=== PATIENT | male | born 1960 | race Caucasian/White ===

== ENCOUNTER → 2017-08-26 15:05 | Outpatient (CLI) | payer MEDICARE, MEDICAID, SELFPAY ==
--- NOTE | 2017-08-26 15:05 | DT_ITS ---
This patient was seen during an EMR downtime August 26, 2017 - September 02, 2017. This patient may have a combination of paper and electronic documentation or all paper documentation. All documentation is viewable within the e-chart portion of [employer] for each patient visit.
[2017-09-01 03:14] LABS: ALB/GLOB Ratio 1.1 RATIO (0.9-2.4); BUN 11 mg/dL (7-18); BUN/Creat Ratio 12.6 RATIO (10-20); Creatinine, Serum 0.87 mg/dL (0.70-1.30); EST Glomerular Filtration Rate 96 mL/min (>60); Est Glom Filt Rate - Afr Amer 116 mL/min (>60); Globulin 3.5 g/dL (2.2-4.2); Glucose 92 mg/dL (74-106); Protein, Total 7.5 g/dL (6.4-8.2)
[2017-09-01 03:15] LABS: AST(SGOT) 20 U/L (15-37); Alanine Aminotransfer ALT/SGPT 33 U/L (16-61); Alkaline Phosphatase 62 U/L (45-117); Anion Gap 7 (5-15); Chloride 105 mmol/L (98-107); Cholesterol 239 mg/dL (200); High Density Lipoprotein 34 mg/dL; Potassium 4.1 mmol/L (3.5-5.1); Sodium Level 138 mmol/L (136-145); Triglycerides 305 mg/dL; Very Low Density Lipoprotein 61 mg/dL (5-40)
[2017-09-01 03:18] LABS: Hemoglobin A1c 6.2 % (4.2-6.3)
[2017-09-01 04:00] LABS: White Blood Count 8.2 K/mm3 (4.4-11.0)
[2017-09-01 04:01] LABS: Hematocrit 38.1 % (40-54); Hemoglobin 12.9 g/dl (13.0-16.5); Mean Corp Hgb Conc 33.9 g/gl (32-36); Mean Corpuscular Hgb 31.5 pg (27.0-32.0); Mean Corpuscular Volume 92.9 fL (80-94); Mean Platelet Vol. 10.8 fl (6.2-12.0); Platelet Count 291 K/mm3 (150-450); RBC Distribution Width CV 12.6 % (11.6-14.6); RBC Distribution Width SD 41.8 fl (35.1-43.9); Scan Indicated on CBC? Y/N NO
[2017-09-01 04:15] LABS: Amphetamine Urine VISTA NEGATIVE (<1000 ng/mL); Barbiturate Urine VISTA NEGATIVE (< 200 ng/mL); Benzodiazepine Urine VISTA POSITIVE (< 200 ng/mL); Cocaine Urine VISTA NEGATIVE (< 300 ng/mL); Ecstacy Urine VISTA NEGATIVE (< 500 ng/mL); Methadone Urine VISTA NEGATIVE (< 300 ng/mL)
[2017-09-01 04:16] LABS: PCP Urine VISTA NEGATIVE (< 25 ng/mL); THC Urine VISTA NEGATIVE (< 50 ng/mL)
== END ==
PROVIDERS: Family Provider Family Medicine; PCP Family Medicine; Visit Provider Family Medicine
DX: I25.10 Atherosclerotic heart disease of native coronary artery without angina pectoris (principal); I10 Essential (primary) hypertension; R73.03 Prediabetes; Z79.899 Other long term (current) drug therapy
CPT/HCPCS: 36415; 80053; 80061; 80307; 83036; 85027

== ENCOUNTER 2018-12-03 23:33 | Emergency (ER) | payer MEDICARE, MEDICAID, SELFPAY ==
[2018-12-03 23:34] VITALS: BP 168/87; PULSE 58; RESP 16; TEMP 36.7; O2SAT 99; BMI 23.9
[2018-12-04] VITALS (9 sets, daily range): BP systolic 111–161; BP diastolic 67–80; PULSE 50–56; RESP 14–18; TEMP 37.1–37.3; O2SAT 97–100
--- NOTE | 2018-12-04 00:26 | CT_ITS ---
STUDY: CT ABDOMEN AND PELVIS WITH CONTRAST REASON FOR EXAM: Male, 57 years old. Lower abdominal pain RADIATION DOSAGE (If Supplied By Facility): CTDIvol = ( 16.50 ) mGy, DLP = ( 673.76 ) mGycm TECHNIQUE: Transaxial images were obtained from the dome of the diaphragm to the symphysis pubis without oral contrast. 100ML IV/Oral Isovue 300 was administered. Sagittal and coronal images were reconstructed. Individualized dose optimization techniques were used for this CT. COMPARISON: None. FINDINGS: The visualized lung bases are unremarkable. The visualized portions of the heart are within normal limits. Normal liver. Normal gallbladder and extrahepatic biliary system. Normal spleen. Normal pancreas. Normal bilateral adrenal glands. Normal right kidney. Normal left kidney. Normal visualized stomach. Normal small intestine. Normal colon. There is non-visualization of the appendix. There is diffuse atherosclerotic calcification of the abdominal aorta, without a demonstrated aneurysm. Normal inferior vena cava. Normal retroperitoneum. Normal urinary bladder. Normal abdominal wall. Normal osseous structures. CT/Abdomen/Pelvis WITH Contrast IMPRESSION: Normal enhanced CT of the abdomen and pelvis. Electronically Signed: Lola Olivo, at 3:40 EDT Tel , Service support ,
--- NOTE | 2018-12-04 00:27 | EKG12_ITS ---
Test Reason : MENTAL HEALTH Blood Pressure : / mmHG Vent. Rate : 048 BPM Atrial Rate : 048 BPM P-R Int : 184 ms QRS Dur : 082 ms QT Int : 454 ms P-R-T Axes : 064 057 072 degrees QTc Int : 405 ms Sinus bradycardia Otherwise normal ECG Confirmed by VERONICA JACK, XIMENA ([id number]), movie editor MITZI SCHUSTER ([id number]) on 12/08/2018 3:23:29 PM Referred By: NATHALIE Confirmed By:YOBANI MARTIN MD
--- NOTE | 2018-12-04 00:28 | ED.VIS.GEN ---
History of Present Illness Chief Complaint: Mental Health Narrative: Patient is a 57-year-old male who presents with chief complaint of I crashed. He has a history of bipolar. When asked to clarify he states he is referring to his mood. He reports suicidal thoughts. When asked if he has a plan he states Oh, I have a plan but I'm not telling you. No homicidal thoughts. He states this is worsened because of his abdominal pain. He has history of chronic abdominal pain. However his pain has been significantly worse in the last week. His pain is sharp and on the left side of his abdomen. It is worse when he has a bowel movement. He reports constipation. No diarrhea. No blood in the stool. No history of diverticulitis. He states he has had problems with his bowels ever since I was a baby. Past Medical History - Allergies and Home Meds Allergies/Adverse Reactions: Allergies acetaminophen [From Tylenol-Codeine #3] Allergy (Verified 12/03/18 23:37) Unknown codeine [From Tylenol-Codeine #3] Allergy (Verified 12/03/18 23:37) Unknown Primary Care Physician: Sony Boyle DO [Primary Care Provider] - Past Medical History: - - Coronary artery disease, hypertension, hyperlipidemia, bipolar Surgical History: no surgical history Smoking Status: Current every day smoker - Family History Maternal Family History: Reports: Diabetes, Heart Disease, Hypertension Paternal Family History: Reports: Diabetes, Heart Disease, Hypertension Review of Systems All systems negative except as indicated General: Denies: Fever Cardiovascular: Denies: Chest pain Respiratory: Denies: Dyspnea Gastrointestinal: Reports: Abdominal pain, Constipation. Denies: Nausea, Vomiting Psych: Reports: Depression, Suicidal thoughts, Suicidal ideations Physical Exam Vital Signs/Narrative: Vital Signs Temp Pulse Resp BP Pulse Ox 12/03/18 23:34 98.0 F 58 L 16 168/87 H 99 Inital Vital Signs reviewed: Yes General: Well nourished, Well developed Head: Normocephalic, Atraumatic Eyes: Perrl, EOMI ENT: Moist mucous membranes Neck: Supple Cardiovascular: Regular rate, Regular rhythm Respiratory: No distress, CTA bilaterally Abdomen: Soft, Tender. Negative for: Nontender, Nondistended Skin: Normal color Neurological: Alert Psychological: Depressed, - - Reports suicidal ideation, blunt affect Diagnostic/Tx/Re-eval Impressions Abdomen/Pelvis CT 12/04/18 00:26 IMPRESSION: Normal enhanced CT of the abdomen and pelvis. Electronically Signed: Lola Olivo, at 3:40 EDT Tel , Service support , 12/04/18 00:26 Abdomen/Pelvis WITH Contrast [CT] Stat Laboratory Results 12/04/18 12/04/18 12/04/18 00:38 00:38 00:38 WBC 6.0 RBC 4.69 Hgb 14.6 Hct 43.4 MCV 92.5 MCH 31.1 MCHC 33.6 RDW Std Deviation 42.6 RDW Coeff of Renu 12.6 Plt Count 333 MPV 9.3 Immature Gran % (Auto) 0.300 Neut % (Auto) 47.7 Lymph % (Auto) 45.0 H [place] % (Auto) 5.0 Eos % (Auto) 1.3 Baso % (Auto) 0.7 Absolute Neuts (auto) 2.9 Absolute Lymphs (auto) 2.71 Nucleated RBC % 0 Sodium 142 Potassium 3.7 Chloride 111 H Carbon Dioxide 27.0 Anion Gap 4 L BUN 9 Creatinine 0.82 Estim Creat Clear Calc 104.58 Est GFR (MDRD) Af Amer 124 Est GFR (MDRD) Non-Af 102 BUN/Creatinine Ratio 11.0 Glucose 104 Calcium 9.4 Total Bilirubin 0.40 AST 11 L ALT 23 Alkaline Phosphatase 64 Total Protein 7.6 Albumin 3.9 Globulin 3.7 Albumin/Globulin Ratio 1.1 Lipase 67 L Urine Color Urine Clarity Urine pH Ur Specific [place] Urine Protein Urine Glucose (UA) Urine Ketones Urine Occult Blood Urine Nitrite Urine Bilirubin Urine Urobilinogen Ur Leukocyte Esterase Urine RBC Urine WBC Ur Squamous Epith Cells Urine Bacteria Urine Mucus Urine Opiates Screen Urine Methadone Screen Ur Barbiturates Screen Ur Phencyclidine Scrn Ur Amphetamines Screen U Methamphetamin-MDMA U Benzodiazepines Scrn Urine Cocaine Screen U Cannabinoids Screen Ur Drug Screen Comment Ethyl Alcohol 47.0 12/04/18 12/04/18 02:10 02:10 WBC RBC Hgb Hct MCV MCH MCHC RDW Std Deviation RDW Coeff of Renu Plt Count MPV Immature Gran % (Auto) Neut % (Auto) Lymph % (Auto) [place] % (Auto) Eos % (Auto) Baso % (Auto) Absolute Neuts (auto) Absolute Lymphs (auto) Nucleated RBC % Sodium Potassium Chloride Carbon Dioxide Anion Gap BUN Creatinine Estim Creat Clear Calc Est GFR (MDRD) Af Amer Est GFR (MDRD) Non-Af BUN/Creatinine Ratio Glucose Calcium Total Bilirubin AST ALT Alkaline Phosphatase Total Protein Albumin Globulin Albumin/Globulin Ratio Lipase Urine Color Yellow Urine Clarity Clear Urine pH 7.0 Ur Specific [place] 1.005 Urine Protein Negative Urine Glucose (UA) Normal Urine Ketones Negative Urine Occult Blood Negative Urine Nitrite Negative Urine Bilirubin Negative Urine Urobilinogen Normal Ur Leukocyte Esterase Negative Urine RBC 0 SEEN Urine WBC 0 SEEN Ur Squamous Epith Cells 0 SEEN Urine Bacteria 0 SEEN Urine Mucus 0 SEEN Urine Opiates Screen POSITIVE H Urine Methadone Screen NEGATIVE Ur Barbiturates Screen NEGATIVE Ur Phencyclidine Scrn NEGATIVE Ur Amphetamines Screen NEGATIVE U Methamphetamin-MDMA NEGATIVE U Benzodiazepines Scrn POSITIVE H Urine Cocaine Screen NEGATIVE U Cannabinoids Screen POSITIVE H Ur Drug Screen Comment Ethyl Alcohol - Medical Decision Making Patient was treated with IV fluids, Toradol. Work-up as above notable for benzodiazepines, opiates, cannabinoids on his drug screen. He does appear to be prescribed benzodiazepines and opiates. Alcohol level was 47. CT of the abdomen and pelvis shows no acute process. He has had some constipation. His symptoms may be related to colonic spasm. He is still complaining of some discomfort on reevaluation but does not appear to have any serious acute or surgical pathology. He was given Bentyl. The patient is medically cleared. At this point we will have crisis evaluate the patient but given his reports of suicidal thoughts with plan he will require psychiatric hospitalization. ED Disposition - Plan for ED Patient: Disposition: Psychiatric Hospital or Unit Diagnosis: Abdominal pain, Suicidal ideation Referrals: Sony Boyle DO [Primary Care Provider] -
[2018-12-04] MEDS: 0.9% Normal Saline 1,000 ML 1000 ML IV (00:38)
[2018-12-04] MEDS: Ketorolac 30 MG/ML Syringe IV (00:38)
[2018-12-04 00:46] LABS: Absolute Lymphocyte Count 2.71 X10^3/uL (0.83-4.51); Absolute Neutrophil Count 2.9 X10^3/uL (2.0-7.7); Basophil# 0.04 X10^3/uL; Basophil% 0.7 % (0-1); Eosinophil# 0.08 X10^3/uL; Eosinophils% 1.3 % (0-5); Hematocrit 43.4 % (40-54); Hemoglobin 14.6 g/dL (13.0-16.5); Lymphocyte # 2.71 X10^3/ul (4.0); Mean Corp Hgb Conc 33.6 g/dL (32-36); Mean Corpuscular Hgb 31.1 pg (27.0-32.0); Mean Corpuscular Volume 92.5 fL (80-94); Mean Platelet Vol. 9.3 fl (6.2-12.0); NRBC Flagged by Analyzer 0 % (0-5); Neutrophil # 2.87 X10^3/uL (2.7-7.7); Neutrophil % 47.7 % (47-70); Platelet Count 333 K/mm3 (150-450); RBC Distribution Width CV 12.6 % (11.6-14.6); RBC Distribution Width SD 42.6 fl (35.1-43.9); Red Blood Count 4.69 M/mm3 (4.6-6.2)
[2018-12-04 01:05] LABS: ALB/GLOB Ratio 1.1 RATIO (0.9-2.4); AST(SGOT) 11 U/L (15-37); Alanine Aminotransfer ALT/SGPT 23 U/L (16-61); Albumin, Serum 3.9 g/dL (3.2-5.0); Alkaline Phosphatase 64 U/L (45-117); Anion Gap 4 (5-15); BUN 9 mg/dL (7-18); Calcium,Total 9.4 mg/dL (8.5-10.1); Chloride 111 mmol/L (98-107); Creatinine, Serum 0.82 mg/dL (0.70-1.30); EST Glomerular Filtration Rate 102 mL/min (>60); Est Glom Filt Rate - Afr Amer 124 mL/min (>60); Estimated Creatinine Clearance 104.58 ml/min; Globulin 3.7 g/dL (2.2-4.2); Glucose 104 mg/dL (74-106); Lipase 67 U/L (73-393); Potassium 3.7 mmol/L (3.5-5.1); Protein, Total 7.6 g/dL (6.4-8.2); Sodium Level 142 mmol/L (136-145)
[2018-12-04 02:12] LABS: Bacteria 0 SEEN /hpf (None Seen); Mucous, Urine 0 SEEN /hpf (<or=2+); Red Blood Cells-Urine 0 SEEN /hpf (0-5); Squamous Epithelial Cells - UA 0 SEEN /hpf (0-5); White Blood Cells 0 SEEN /hpf (0-5)
[2018-12-04 02:16] LABS: Color, Urine Yellow (Yellow); Glucose, Dipstick Normal (Normal); Ketone-Dipstick Negative (Negative); Leukocyte Esterase-Dipstick Negative /ul (Negative); Nitrite-Dipstick Negative (Negative); Occult Blood-Urine Negative /ul (Negative); Protein-Dipstick Negative (Negative); Specific Gravity, Urine 1.005 (1.002-1.030); Urine Bilirubin Dipstick Negative (Negative); Urine Clarity Clear (Clear); Urine Urobilinogen Normal (Normal)
[2018-12-04 02:36] LABS: Amphetamine Urine VISTA NEGATIVE (<1000 ng/mL); Barbiturate Urine VISTA NEGATIVE (< 200 ng/mL); Benzodiazepine Urine VISTA POSITIVE (< 200 ng/mL); Cocaine Urine VISTA NEGATIVE (< 300 ng/mL); Ecstacy Urine VISTA NEGATIVE (< 500 ng/mL); Methadone Urine VISTA NEGATIVE (< 300 ng/mL); PCP Urine VISTA NEGATIVE (< 25 ng/mL); THC Urine VISTA POSITIVE (< 50 ng/mL); Vista UDS pH Range 7
--- NOTE | 2018-12-04 03:43 | ED.RN ---
[facility] CONTACTED TO SEE PT
[2018-12-04] MEDS: Dicyclomine 10 MG Capsule 20 MG PO (03:54)
[2018-12-04] MEDS: ALPRAZolam 0.5 MG Tablet 4 MG PO (04:17)
--- NOTE | 2018-12-04 06:51 | NURSING ---
REFERRAL MADE BY [facility] WITH CRISIS TO [facility]
[2018-12-04] MEDS: Tamsulosin HCl 0.4 MG Capsule PO (09:13)
[2018-12-04] MEDS: Clopidogrel Bisulfate 75 MG Tablet PO (09:13)
[2018-12-04] MEDS: Lisinopril 5 MG Tablet PO (09:13)
== END 2018-12-04 10:15 ==
PROVIDERS: Emergency Provider Emergency Medicine; Family Provider Family Medicine; PCP Family Medicine
DX: F31.9 Bipolar disorder, unspecified (principal); R45.851 Suicidal ideations; R10.30 Lower abdominal pain, unspecified; G89.29 Other chronic pain; K59.00 Constipation, unspecified; I25.10 Atherosclerotic heart disease of native coronary artery without angina pectoris; I10 Essential (primary) hypertension; E78.5 Hyperlipidemia, unspecified; F17.200 Nicotine dependence, unspecified, uncomplicated; Z79.02 Long term (current) use of antithrombotics/antiplatelets; Z79.899 Other long term (current) drug therapy; Z88.6 Allergy status to analgesic agent; Z88.5 Allergy status to narcotic agent
CPT/HCPCS: 74177; 80053; 80307; 80320; 81001; 83690; 85025; 93005; 96361; 96374; 99285; J7030; Q9967; G0480

== ENCOUNTER → 2019-04-06 13:43 | Outpatient (CLI) | payer MEDICARE, MEDICAID, SELFPAY ==
[2019-04-06 15:25] LABS: Absolute Lymphocyte Count 2.71 X10^3/uL (0.83-4.51); Absolute Neutrophil Count 3.7 X10^3/uL (2.0-7.7); Basophil# 0.02 X10^3/uL; Basophil% 0.3 % (0-1); Eosinophil# 0.05 X10^3/uL; Eosinophils% 0.7 % (0-5); Hematocrit 39.8 % (40-54); Hemoglobin 13.6 g/dL (13.0-16.5); Lymphocyte # 2.71 X10^3/ul (4.0); Mean Corp Hgb Conc 34.2 g/dL (32-36); Mean Corpuscular Hgb 31.9 pg (27.0-32.0); Mean Corpuscular Volume 93.4 fL (80-94); Mean Platelet Vol. 9.7 fl (6.2-12.0); Monocyte# 0.32 X10^3/uL; Monocyte% 4.7 % (0-10); NRBC Flagged by Analyzer 0 % (0-5); Neutrophil # 3.65 X10^3/uL (2.7-7.7); Platelet Count 296 K/mm3 (150-450); RBC Distribution Width CV 12.8 % (11.6-14.6); RBC Distribution Width SD 43.8 fl (35.1-43.9); Red Blood Count 4.26 M/mm3 (4.6-6.2); White Blood Count 6.8 K/mm3 (4.4-11.0)
[2019-04-06 16:03] LABS: ALB/GLOB Ratio 1.2 RATIO (0.9-2.4); AST(SGOT) 16 U/L (15-37); Alanine Aminotransfer ALT/SGPT 27 U/L (16-61); Albumin, Serum 3.9 g/dL (3.2-5.0); Alkaline Phosphatase 59 U/L (45-117); Anion Gap 4 (5-15); BUN 10 mg/dL (7-18); BUN/Creat Ratio 12.9 RATIO (10-20); Calcium,Total 9.7 mg/dL (8.5-10.1); Chloride 107 mmol/L (98-107); Cholesterol 184 mg/dL (200); Creatinine, Serum 0.77 mg/dL (0.70-1.30); EST Glomerular Filtration Rate 109 mL/min (>60); Est Glom Filt Rate - Afr Amer 132 mL/min (>60); Globulin 3.3 g/dL (2.2-4.2); Glucose 101 mg/dL (74-106); High Density Lipoprotein 62 mg/dL; PSA,Total - Annual Screen 1.64 ng/mL (0.00-4.00); Potassium 3.7 mmol/L (3.5-5.1); Protein, Total 7.2 g/dL (6.4-8.2); Sodium Level 137 mmol/L (136-145); Triglycerides 151 mg/dL; Very Low Density Lipoprotein 30 mg/dL (5-40)
[2019-04-06 16:04] LABS: Hemoglobin A1c 6.1 % (4.2-6.3)
== END ==
PROVIDERS: Family Provider Family Medicine; PCP Family Medicine; Visit Provider Family Medicine
DX: R73.03 Prediabetes (principal); I25.10 Atherosclerotic heart disease of native coronary artery without angina pectoris; I10 Essential (primary) hypertension; E78.5 Hyperlipidemia, unspecified; Z51.81 Encounter for therapeutic drug level monitoring
CPT/HCPCS: 36415; 80053; 80061; 83036; 84153; 85025; G0103

== ENCOUNTER → 2020-06-27 | Outpatient (CLI) | payer MEDICARE, MEDICAID, SELFPAY ==
[2020-06-27 18:03] LABS: Amphetamine Urine VISTA NEGATIVE (<1000 ng/mL); Barbiturate Urine VISTA NEGATIVE (< 200 ng/mL); Benzodiazepine Urine VISTA POSITIVE (< 200 ng/mL); Cocaine Urine VISTA NEGATIVE (< 300 ng/mL); Ecstacy Urine VISTA NEGATIVE (< 500 ng/mL); Methadone Urine VISTA NEGATIVE (< 300 ng/mL); PCP Urine VISTA NEGATIVE (< 25 ng/mL); THC Urine VISTA NEGATIVE (< 50 ng/mL); Vista UDS pH Range 5
[2020-06-27 18:09] LABS: Microalbumin,Random Urine < 5.0 mg/L (NO RANGE EST.)
== END | disposition home or self-care (01) ==
PROVIDERS: PCP Family Medicine; Referring Provider Family Medicine; Visit Provider Family Medicine
DX: I10 Essential (primary) hypertension (principal); Z51.81 Encounter for therapeutic drug level monitoring
CPT/HCPCS: 80307; 82043; 82570